=== PATIENT | female | born 1955 | race Two or more races ===

== ENCOUNTER 2020-03-17 12:50 | Inpatient (IN) | payer MEDICARE, OTHER ==
[~2020-03-17] VITALS: Ht 165.1 cm; Wt 128.4 kg
--- NOTE | 2020-03-17 13:45 | NUR ---
Patient came in to the er c/o BLE edema and pain x 3 days 5/10 pain scale, on Lasix 40mg tab. On room air, breathing evenly and unlabored. connected to the monitor and pulse ox. kept comfortable, will continue to monitor accordingly.
[2020-03-17 16:18] LABS: CALCIUM, SERUM 9.1 mg/dL (8.5-10.1); CARBON DIOXIDE 25 mmol/L (21-32); CHLORIDE 106 mmol/L (98-107); GLUCOSE 115 mg/dL (74-106); POTASSIUM 3.8 mmol/L (3.5-5.1); SODIUM SERUM 141 mmol/L (136-145); UREA NITROGEN, BLOOD 20 mg/dL (7-18)
[2020-03-17 16:20] LABS: BASOPHILS % (AUTO) 0.4 % (0.0-2.0); EOSINOPHILS % (AUTO) 2.1 % (0.0-6.0); HEMATOCRIT 37 % (33-45); HEMOGLOBIN 12.2 g/dL (11.5-14.8); LYMPHOCYTES # (AUTO) 1.7 /CMM (0.8-4.8); MEAN CORPUSCULAR HGB CONC 33 g/dl (31.0-36.0); MEAN CORPUSCULAR VOLUME 94 fL (82-100); MONOCYTES # (AUTO) 0.4 /CMM (0.1-1.30); MONOCYTES % (AUTO) 5.8 % (2.0-12.0); NEUTROPHILS # (AUTO) 4.9 /CMM (1.8-8.9); NEUTROPHILS % (AUTO) 67.7 % (43.0-81.0); PLATELET COUNT (AUTO) 214 /CMM (150-450); RED BLOOD CELL COUNT(AUTO) 3.94 MIL/uL (4.0-5.2); WHITE BLOOD COUNT (AUTO) 7.2 K/uL (4.3-11.0)
[2020-03-17 16:44] LABS: B-TYPE NATRIURETIC PEPTIDE 516 PG/ML (0-125)
[2020-03-17] MEDS ORDERED: RIVAROXABAN 10 MG TABLET PO STA (17:21)
[2020-03-17] MEDS ORDERED: RIVAROXABAN 15 MG TABLET PO STA (17:25)
[2020-03-17] MEDS ORDERED: HYDR30CR99 RC (17:31)
[2020-03-17] MEDS ORDERED: MOME15OI2 TP (17:31)
[2020-03-17] MEDS ORDERED: FLUO60SO3 TP (17:31)
[2020-03-17] MEDS ORDERED: ASPI-1420 PO (17:31)
[2020-03-17] MEDS ORDERED: DIPH50CA38 PO (17:31)
[2020-03-17] MEDS ORDERED: PARO30TA4 PO (17:31)
[2020-03-17] MEDS ORDERED: POTA8TAB3 PO (17:31)
[2020-03-17] MEDS ORDERED: LORA10TA7 PO (17:31)
[2020-03-17] MEDS ORDERED: BUSP5TAB3 PO (17:31)
[2020-03-17] MEDS ORDERED: FURO40TA5 PO (17:31)
[2020-03-17] MEDS ORDERED: ATOR40TA PO (17:31)
[2020-03-17] MEDS ORDERED: BACL20TA PO (17:31)
[2020-03-17] MEDS ORDERED: CYAN500T66 PO (17:31)
[2020-03-17] MEDS ORDERED: LOSA50TA39 PO (17:31)
[2020-03-17] MEDS ORDERED: FENO145T21 PO (17:31)
[2020-03-17] MEDS ORDERED: IBUP-1957 PO (17:31)
--- NOTE | 2020-03-17 17:32 | NUR ---
xarelto dose verified by labog rn
[2020-03-17] MEDS ORDERED: IOHEXOL-350 100 ML VIAL IV ONE (17:33)
[2020-03-17] MEDS ORDERED: IV NS 0.9% 250 ML IV ONE (17:33)
[2020-03-17 17:51] LABS: THYROID STIMULATING HORMONE 1.252 uIU/mL (0.358-3.74)
[2020-03-17 18:06] LABS: D-DIMER 10.57 mg/L(FEU (0.17-0.50)
--- NOTE | 2020-03-17 19:10 | NUR ---
report given to Marciano GOMEZ for maggy
--- NOTE | 2020-03-17 19:34 | NUR ---
PATIENT HAS A HEART RATE OF 134, MD NOTIFIED. NO ORDERS RECEIVED.
[2020-03-17 20:00] VITALS: BP 149/95
[2020-03-17] MEDS ORDERED: ACETAMINOPHEN 325 MG TABLET PO PRN (20:00)
[2020-03-17] MEDS ORDERED: Z GUARD REMEDY 2 OZ OINT TP PRN (20:00)
[2020-03-17] MEDS ORDERED: ONDANSETRON HCL/PF 4 MG/2 ML VIAL IVP PRN (20:00)
[2020-03-17] MEDS ORDERED: HYDROCODONE/APAP 5/325MG TABLET PO PRN (20:00)
[2020-03-17] MEDS ORDERED: HYDROCORTISONE CR 30 GM TUBE RC PRN (20:00)
[2020-03-17] MEDS ORDERED: LORATADINE 10 MG TABLET PO PRN (20:00)
[2020-03-17] MEDS ORDERED: MAGNESIUM HYDROXIDE 30 ML UDC PO PRN (20:00)
[2020-03-17] MEDS ORDERED: MAG HYDROX/AL HYDROX/SIMETH 30 ML UDC PO PRN (20:00)
[2020-03-17] MEDS ORDERED: ENOXAPARIN SODIUM 150 MG/ML DISP.SYRIN SQ SCH (21:00)
--- NOTE | 2020-03-17 21:07 | NUR ---
BED 307-2
--- NOTE | 2020-03-17 21:22 | NUR ---
REPORT GIVEN TO FAIZAN GOMEZ FOR CHAVA.
--- NOTE | 2020-03-17 21:47 | NUR ---
PATIENT TAKEN UP TO ASSIGNED ROOM FOR CHAVA.
[2020-03-17 22:00] VITALS: BP 135/92
[2020-03-17] MEDS: diphenhydrAMINE HCL 50 MG CAPSULE PO SCH (22:15)
[2020-03-17] MEDS: ATORVASTATIN 40 MG TABLET PO SCH (22:15)
--- NOTE | 2020-03-17 23:42 | NUR ---
STRAIGHTENER AND ALIGNER NOTES 2149 - Received patient A/O x4, awake, via gurney from ER accompanied by 2 ER staff. Admitted to Tele 310-2 due to DVT/PE. Transferred to bed comfortably, pt noted ambulatory with stand by assist. Place on bed comfortably. Admission routine done. On tele monitor with sinus tach noted. Pt denies any discomfort at this time. Kept on bed clean, dry and comfortable. On fall precautions. Will continue to monitor accordingly.
[2020-03-18 06:32] LABS: BASOPHILS % (AUTO) 0.7 % (0.0-2.0); EOSINOPHILS % (AUTO) 6.9 % (0.0-6.0); HEMATOCRIT 35 % (33-45); HEMOGLOBIN 11.6 g/dL (11.5-14.8); LYMPHOCYTES # (AUTO) 1.3 /CMM (0.8-4.8); LYMPHOCYTES % (AUTO) 23.9 % (20.0-44.0); MEAN CORPUSCULAR HGB CONC 33 g/dl (31.0-36.0); MEAN CORPUSCULAR VOLUME 92 fL (82-100); MONOCYTES # (AUTO) 0.4 /CMM (0.1-1.30); MONOCYTES % (AUTO) 7.7 % (2.0-12.0); NEUTROPHILS # (AUTO) 3.4 /CMM (1.8-8.9); NEUTROPHILS % (AUTO) 60.8 % (43.0-81.0); PLATELET COUNT (AUTO) 210 /CMM (150-450); RED BLOOD CELL COUNT(AUTO) 3.79 MIL/uL (4.0-5.2); WHITE BLOOD COUNT (AUTO) 5.7 K/uL (4.3-11.0)
--- NOTE | 2020-03-18 06:51 | NUR ---
RN NOTES Pt asleep on bed, no new complaints made. Teachings in the importance of taking prescribed medications given, patient verbalized understanding. All nursing needs attended, due meds given as ordered. On fall and aspiration precautions, endorsed.
[2020-03-18 07:53] LABS: CALCIUM, SERUM 8.6 mg/dL (8.5-10.1); CREATININE 0.8 mg/dL (0.6-1.3); PHOSPHORUS 3.9 mg/dL (2.5-4.9)
[2020-03-18 08:00] VITALS: BP 113/84
--- NOTE | 2020-03-18 08:00 | NUR ---
RN AM TELE NOTES Received patient A/O x4, awake, On tele ST HR 133. Denies any chest pain or distress. Ambulatory with stand by assist. Pt denies any discomfort at this time. With LAC heplock intact. Elevated swollen LLE with pillows. Awaiting for cardio and pulmo consult. Pt in bed clean, dry and comfortable. Call light placed within reach. Will continue to monitor accordingly.
[2020-03-18] MEDS: BACLOFEN (10 MG) 10 MG TABLET PO SCH (08:33)
[2020-03-18] MEDS: FENOFIBRATE NANOCRYS (145 MG) 145 MG TABLET PO SCH (08:33)
[2020-03-18] MEDS: CYANOCOBALAMIN 500 MCG TABLET PO SCH (08:34)
[2020-03-18] MEDS: PAROXETINE HCL 10 MG TABLET PO SCH (08:35)
[2020-03-18] MEDS: FUROSEMIDE 40 MG TABLET PO SCH (08:35)
[2020-03-18] MEDS: busPIRone 5 MG TABLET PO SCH ×2 (08:35→17:17)
[2020-03-18] MEDS: LOSARTAN POTASSIUM 50 MG TABLET PO SCH (08:37)
[2020-03-18] MEDS: ENOXAPARIN SODIUM 120 MG/0.8 ML DISP.SYRIN SQ SCH ×2 (08:38→20:45)
[2020-03-18] MEDS: ASPIRIN EC 81 MG TABLET.DR PO SCH (08:39)
[2020-03-18] MEDS ORDERED: FLUOCINONIDE 0.05% SOLN 60 ML BOTTLE TP SCH ×2 (09:00)
[2020-03-18] MEDS ORDERED: ENOXAPARIN SODIUM 150 MG/ML DISP.SYRIN SQ SCH (09:00)
[2020-03-18 14:38] LABS: IRON, SERUM 97 ug/dl (50-175); TOTAL IRON BINDING CAPACITY 335 ug/dl (250-450)
[2020-03-18 16:00] VITALS: BP 131/90
[2020-03-18 16:16] LABS: CHOLESTEROL 194 mg/dL (<200); FERRITIN 59 ng/mL (8-388); HDL CHOLESTEROL 50 mg/dL (40-60); LDL 126 mg/dL (0-99); TRIGLYCERIDES 120 mg/dL (30-150)
--- NOTE | 2020-03-18 18:00 | NUR ---
Pt resting in bed denies pain or distress. Call light placed within reach.
--- NOTE | 2020-03-18 19:15 | NUR ---
RN OPENING NOTES Received patient awake, resting on bed. Pt denies any discomfort at this time. On tele monitor with Sinus tach noted. On fall and aspiration precautions. Will continue to monitor accordingly.
[2020-03-18 20:00] VITALS: BP 125/91
--- NOTE | 2020-03-18 20:25 | NUR ---
WINCH RUNNER NOTES Received patient from ER via [facility] accompanied by 2 ER staff. Admitted to Tele 314-2 due to syncope. Ector. Transferred to bed comfortably. Pt noted ambulatory with steady gait. Admission routine done. On tele monitor with NSR noted. On RA, no respiratory distress noted. Pt denies any discomfort at this time. Admission orders noted and carried out. On fall and aspiration precautions. Will continue to monitor accordingly. Addendum: 03/18/20 at 2346 by FAIZAN SCHMIDT RN incorrect patient.
[2020-03-18] MEDS: ATORVASTATIN 40 MG TABLET PO SCH (21:04)
[2020-03-18] MEDS: diphenhydrAMINE HCL 50 MG CAPSULE PO SCH (21:04)
[2020-03-19] VITALS (7 sets, daily range): BP systolic 110–133; BP diastolic 66–90
--- NOTE | 2020-03-19 06:23 | NUR ---
RN CLOSING NOTES Pt asleep on bed. On Ra, no new complaints made. On tele monitor with Sinus tach noted throughout the shift. On fall and aspiration precautions. Pt on anticoagulant, no s/sx of bleeding noted. All nursing needs attended. Endorsed.
--- NOTE | 2020-03-19 08:06 | NUR ---
WOOD TOOL MAKER NOTE PATIENT IN BED RESTING COMFORTABLY. PATIENT IN NO ACUTE DISTRESS. NO SOB NOTED. PATIENT BREATHING IS EVEN AND UNLABORED. PATIENT ON CARDIAC MONITORING READING SINUS TACHYCARDIA HR 131. PATIENT STATES NO PAIN AT THIS TIME. PATIENT BED ALARM IS ON. SAFETY PRECAUTIONS IN PLACE. PATIENT BED IS LOCKED AND IN LOWEST POSITION. CALL LIGHT WITHIN REACH. WILL CONTINUE TO MONITOR.
[2020-03-19] MEDS ORDERED: AMIODARONE 450 MG in IV D5W 250 ML IV PRN (08:30)
[2020-03-19] MEDS: ASPIRIN EC 81 MG TABLET.DR PO SCH (08:46)
[2020-03-19] MEDS: CYANOCOBALAMIN 500 MCG TABLET PO SCH (08:47)
[2020-03-19] MEDS: BACLOFEN (10 MG) 10 MG TABLET PO SCH (08:47)
[2020-03-19] MEDS: PAROXETINE HCL 10 MG TABLET PO SCH (08:51)
[2020-03-19] MEDS: FENOFIBRATE NANOCRYS (145 MG) 145 MG TABLET PO SCH (08:51)
[2020-03-19] MEDS: FUROSEMIDE 40 MG TABLET PO SCH (08:51)
[2020-03-19] MEDS: busPIRone 5 MG TABLET PO SCH ×2 (08:52→16:55)
[2020-03-19] MEDS: LOSARTAN POTASSIUM 50 MG TABLET PO SCH (08:53)
[2020-03-19] MEDS ORDERED: AMIODARONE 150 MG in IV D5W 100 ML IV ONE (09:00)
[2020-03-19] MEDS: ENOXAPARIN SODIUM 120 MG/0.8 ML DISP.SYRIN SQ SCH ×2 (09:38→21:18)
--- NOTE | 2020-03-19 09:45 | NUR ---
UPKEEP WORKER NOTE REPORT GIVEN TO DESTINEY RN. ENDORSED ALL CARE AND TREATMENT TO DESTINEY RN.
--- NOTE | 2020-03-19 10:05 | NUR ---
RECEIVED REPORT FROM NURSE. PATIENT IS AWAKE ALERT ORIENTED X4 SPEAKS AUSTRIAN. NO CO PAIN OR DISCOMFORT. WILL CONT TO MONITOR.
[2020-03-19] MEDS: AMIODARONE 450 MG in IV D5W 250 ML IV PRN ×2 (12:10→21:20)
--- NOTE | 2020-03-19 12:30 | NUR ---
PATIENT WAS NEAR SYNCOPE. PATIENT WAS ON THE EDGE OF THE BED WITH LOCK INSTALLER TRYING TO GET VITAL SIGNS. PATIENT WAS CAUGHT BY LOCK INSTALLER. PATIENT WAS EASED TO THE FLOOR. ASSISTED BACK TO BED WITH THE HELP OF 7 PEOPLE. VITAL SIGNS WA CHECKED. BP 123/80 HR 130 BPM. O2 SAT WAS 93-95%. PATIENT WAS PLACED ON NC 3L O2 SAT NOW AT 98%.
--- NOTE | 2020-03-19 18:48 | NUR ---
RN CLOSING NOTE Patient in bed awake calm and relaxed talking on the phone no signs of distress. Tele reading A flutter 133bpm. Amiodarone drip running at 16.66ml/hr x 18 hrs starting on 1830 on L Hand #20. Ordered new bag from pharmacy. Per MD cont hospitalization, EKG tomorrow, cont lovenox, for pulmo and cardio consult. Kept legs elevated. Kept clean and dry. All due meds given. All needs met. Will endorse to shift lab technician nurse for maggy.
--- NOTE | 2020-03-19 19:05 | NUR ---
RN NOTE RECEIVED PATIENT IN BED RESTING, WATCHING TV. PATIENT IS A&O X4. ABLE TO MAKE NEEDS KNOWN. BREATHING IS EVEN AND UNLABORED, NO SOB NOTED AT THIS TIME, ON ROOM AIR. IV ON LEFT HAND GAUGE 20 IS CLEAN, DRY, AND PATENT. ON AMIODARONE DRIP 450 MG RUNNING AT 16.66 ML/HR. PER AM SHIFT RN, AMIODARONE DRIP STARTED RUNNING AT 1830 TODAY AND WILL CONTINUE FOR 18 HOURS. HR IS 133 AT THIS TIME. PATIENT IS AMBULATORY. NOTED WHITE RASHES ON HANDS AND FEET. PATIENT VERBALIZED SHE HAS PSORIASIS. MOTIVATED TO SELF CARE. IN NO APPARENT DISTRESS NOTED AT THIS TIME. CALL LIGHT IS WITHIN EASY REACH. WILL CONTINUE TO MONITOR.
[2020-03-19] MEDS: ATORVASTATIN 40 MG TABLET PO SCH (21:13)
[2020-03-19] MEDS: diphenhydrAMINE HCL 50 MG CAPSULE PO SCH ×2 (21:15→21:37)
[2020-03-20] VITALS (9 sets, daily range): BP systolic 112–124; BP diastolic 70–79
--- NOTE | 2020-03-20 06:57 | NUR ---
RN NOTE PATIENT REMAINED STABLE THROUGHOUT THE NIGHT. NO SIGNIFICANT CHANGES NOTED. DUE MEDS GIVEN AND TOLERATED WELL. PATIENT REFUSED BENADRYL. KEPT ON AMIODARONE DRIP RUNNING AT 16.6 ML/HR. PATIENT MOTIVATED TO SELF CARE. WILL ENDORSE TO AM SHIFT RN FOR CONTINUATION OF CARE.
--- NOTE | 2020-03-20 07:30 | NUR ---
AIRFRAME AND POWERPLANT MECHANIC OPENING NOTES Pt is alert and oriented x3. Tele reading A flutter 133bpm. Amniodarone IV drip DC'd by Dr Monge. Not in any acute distress. IV # 20 on Left hand intact and flushed well. All needs met. Bed kept at lowest position for safety. Will continue to monitor.
[2020-03-20] MEDS: FENOFIBRATE NANOCRYS (145 MG) 145 MG TABLET PO SCH (09:35)
[2020-03-20] MEDS: PAROXETINE HCL 10 MG TABLET PO SCH (09:39)
[2020-03-20] MEDS: LOSARTAN POTASSIUM 50 MG TABLET PO SCH (09:39)
[2020-03-20] MEDS: BACLOFEN (10 MG) 10 MG TABLET PO SCH (09:40)
[2020-03-20] MEDS: CYANOCOBALAMIN 500 MCG TABLET PO SCH (09:40)
[2020-03-20] MEDS: busPIRone 5 MG TABLET PO SCH ×2 (09:40→16:58)
[2020-03-20] MEDS: METOPROLOL TARTRATE 50 MG TABLET PO SCH ×3 (09:57→22:11)
[2020-03-20] MEDS: APIXABAN 5 MG TABLET PO SCH ×2 (10:01→16:59)
--- NOTE | 2020-03-20 18:27 | NUR ---
SCHOOL BUS MONITOR CLOSED NOTES PATIENT IS A/O X 4 WITH NO SIGNS OF DISTRESS IN ROOM AIR. NO COMPLAIN OF PAIN AT THIS TIME. LEFT FOOT ELEVATED WITH PILLOW. IV L HAND #20. TELE MONITOR READING A-FLUTTER WITH 127 HEART BEAT. PATIENT KEPT CLEAN AND DRY. ALL NEEDS, CARE, TREATMENT,AND MEDICATIONS WERE ADMINISTERED ANTICIPATED PER ORDER. SAFETY MEASURES ARE APPLIED, BED IS IN LOW POSITION SIDE RAILS UP X 2. CALL LIGHT WITHIN REACH WILL ENDORSE TO THE BRUSH CUTTER NURSE.
[2020-03-20] MEDS: ATORVASTATIN 40 MG TABLET PO SCH ×2 (22:00→22:11)
[2020-03-20] MEDS: diphenhydrAMINE HCL 50 MG CAPSULE PO SCH ×2 (22:00→22:10)
[2020-03-21 00:06] VITALS: BP 120/70
[2020-03-21 04:00] VITALS: BP 112/68
[2020-03-21 04:59] VITALS: BP 112/68
--- NOTE | 2020-03-21 07:00 | NUR ---
LADLE REPAIRMAN CLOSING NOTES: PATIENT IN BED,AWAKE. A/O X4. NO S/S OF DISTRESS NOTED. NO COMPLAIN OF PAIN. CALL LIGHT WITHIN REACH. BED IN LOWEST AND LOCKED POSITION. AMBULATORY.
--- NOTE | 2020-03-21 07:39 | NUR ---
MEMBERSHIP CORRESPONDENT OPENING NOTES PATIENT RECEIVED IN BED AWAKE IN NO ACUTE SIGNS O DISTRESS. A/O X4. ABLE TO MAKE NEEDS KNOWN, DENIES PAIN OR ANY DISCOMFORTS AT THIS TIME. ON ROOM AIR, BREATHING IS EVEN AND UNLABORED. PATIENT ON TELE- MONITORING READING SHOWS SINUS TACHYCARDIA HR 128, NO C/O CARDIAC DISTRESS VOICED. IV SL ON LEFT HAND G#20 INTACT AND PATENT. SAFETY PRECAUTIONS IN PLACE: BED IS LOCKED AND IN LOWEST POSITION, SR UP X2 AND CALL LIGHT WITHIN REACH. WILL CONTINUE TO MONITOR.
[2020-03-21 08:00] VITALS: BP 114/68
[2020-03-21] MEDS: PAROXETINE HCL 10 MG TABLET PO SCH (09:00)
[2020-03-21] MEDS: BACLOFEN (10 MG) 10 MG TABLET PO SCH (09:00)
[2020-03-21] MEDS: busPIRone 5 MG TABLET PO SCH ×2 (09:00→17:03)
[2020-03-21] MEDS: METOPROLOL TARTRATE 50 MG TABLET PO SCH ×2 (09:40→14:37)
[2020-03-21] MEDS: LOSARTAN POTASSIUM 50 MG TABLET PO SCH (09:41)
[2020-03-21] MEDS: FENOFIBRATE NANOCRYS (145 MG) 145 MG TABLET PO SCH (09:41)
[2020-03-21] MEDS: CYANOCOBALAMIN 500 MCG TABLET PO SCH (09:42)
[2020-03-21] MEDS: APIXABAN 5 MG TABLET PO SCH ×2 (09:46→17:04)
[2020-03-21] MEDS ORDERED: METO50TA16 PO (10:10)
[2020-03-21] MEDS ORDERED: APIX5TAB4 PO (10:10)
[2020-03-21 12:00] VITALS: BP 118/67
[2020-03-21 16:00] VITALS: BP 118/81
--- NOTE | 2020-03-21 16:03 | NUR ---
RN NOTES PER DR WARD, OK TO GO HOME AND TO SEE HER OUT PATIENT. FUNERAL SERVICE LICENSEE INES BLAKE CONFIRM WITH DR WARD AND DR WARD STATED "OK" TO GO HOME.
--- NOTE | 2020-03-21 18:33 | NUR ---
RN DISCHARGED NOTES PT DISCHARGED HOME IN STABLE CONDITION. A/O X4. ABLE TO MAKE NEEDS KNOWN. V/S TAKEN AND RECORDED. NO SKIN ISSUES NOTED. IV ACCESS REMOVED WITH NO BLEEDING NOTED, DRY DRESSING APPLIED TO SITE. NAME ARMBAND REMOVED. HEALTH TEACHINGS/DISCHARGE INSTRUCTIONS GIVEN TO PT, SAME GIVEN D/C INSTRUCTIONS VIA TELEPHONE TO PT'S DAUGHTER CADY AND SON KIKI, ALL VERBALIZED UNDERSTANDING. PT LEFT UNIT AT 1815 VIA WHEELCHAIR ACCOMPANIED BY [place]. PT'S SON KIKI WILL TAKE PT'S HOME. MD AND CHARGE NURSE AWARE OF DISCHARGE.
== END 2020-03-21 18:19 | disposition home or self-care (01) | DRG 175 ==
LOC: ER 12:56 → TELE 21:20
PROVIDERS: ADMIT Internal Medicine; ATTEND Internal Medicine
DX: I26.93 Single subsegmental thrombotic pulmonary embolism without acute cor pulmonale (principal); N17.0 Acute kidney failure with tubular necrosis; I82.812 Embolism and thrombosis of superficial veins of left lower extremity; I31.3 Pericardial effusion (noninflammatory); I50.32 Chronic diastolic (congestive) heart failure; I48.92 Unspecified atrial flutter; I11.0 Hypertensive heart disease with heart failure; E78.5 Hyperlipidemia, unspecified; Z79.82 Long term (current) use of aspirin; E66.01 Morbid (severe) obesity due to excess calories; F17.200 Nicotine dependence, unspecified, uncomplicated; G47.33 Obstructive sleep apnea (adult) (pediatric); Z79.01 Long term (current) use of anticoagulants
CPT/HCPCS: 36415; 71045-TC; 80048-TC; 80061-TC; 82728-TC; 83540-TC; 83735-TC; 83880; 84100-TC; 84439-TC; 84443-TC; 84484-TC; 85025-TC; 85378-TC; 85730-TC; 93307-TC; 93970-TC; C9803; G0378; J0282; J1650; J7050; J7060; Q0163; Q9967